=== PATIENT | male | born 1940 | race Two or more races ===

== ENCOUNTER 2022-08-08 10:46 | Emergency (ER) | payer OTHER ==
[~2022-08-08] VITALS: Ht 177.8 cm; Wt 77.1 kg
[2022-08-08] MEDS ORDERED: CELEBREX200MG PO (10:58)
[2022-08-08] MEDS ORDERED: TAMS0.4C (10:58)
[2022-08-08] MEDS ORDERED: NORFLEX100MG PO (12:16)
[2022-08-08] MEDS ORDERED: KETO10TA2 PO (12:16)
[2022-08-08] MEDS ORDERED: MEDROLPACK PO (12:16)
== END 2022-08-08 12:27 | disposition home or self-care (01) ==
LOC: ER 10:46
DX: M77.8 Other enthesopathies, not elsewhere classified (principal)

== ENCOUNTER 2023-06-29 08:45 | Outpatient (CLI) | payer OTHER ==
[~2023-06-29 08:45] MED LIST: CELEBREX200MG PO; KETO10TA2 PO; MEDROLPACK PO; NORFLEX100MG PO; TAMS0.4C
== END 2023-06-29 08:46 | disposition home or self-care (01) ==
LOC: NUCLEAR 08:45
PROVIDERS: ATTEND Internal Medicine
DX: I70.0 Atherosclerosis of aorta (principal); R01.1 Cardiac murmur, unspecified